=== PATIENT | male | born 1995 | race Caucasian/White ===

== ENCOUNTER 2016-10-03 12:40 | Emergency (ER) | payer OTHER ==
[~2016-10-03] VITALS: Ht 157.5 cm; Wt 103.6 kg
[~2016-10-03 12:40] MED LIST: CEPH250C PO; SULF1TAB23 PO; VIC PO; [UNRECOGNIZED DRUG - CODE]
[2016-10-03 12:46] VITALS: Ht 157.5 cm; Wt 103.6 kg
[2016-10-03] MEDS ORDERED: ONDANSETRON 4 MG INJ IV STA (13:40)
[2016-10-03] MEDS ORDERED: morphine 4 MG/ML VIAL IV STA (13:40)
[2016-10-03 14:20] LABS: ADD SCAN DIFF NO
[2016-10-03 14:24] LABS: ADD UMIC YES; URINE BILIRUBIN (Dip) NEGATIVE (NEGATIVE); URINE BLOOD (Dip) NEGATIVE (NEGATIVE); URINE COLOR LT. YELLOW (YELLOW); URINE GLUCOSE (Dip) NEGATIVE (NEGATIVE); URINE KETONES (Dip) NEGATIVE (NEGATIVE); URINE LEUKOCYTE ESTERASE (Dip) NEGATIVE (NEGATIVE); URINE NITRITE (Dip) NEGATIVE (NEGATIVE); URINE TOTAL PROTEIN (Dip) 1+ (NEGATIVE); URINE UROBILINOGEN (Dip) 0.2 E.U./dL (0.1-1.0)
[2016-10-03 14:26] LABS: BASOPHIL # 0.1 10^3/ul (0.0-0.1); BASOPHILS % 0.8 % (0.0-2.0); EOSINOPHILS # 0.1 10^3/ul (0.0-0.5); EOSINOPHILS % 1.5 % (0.0-7.0); HEMATOCRIT 46.6 % (42.0-52.0); HEMOGLOBIN 15.3 g/dl (14.0-18.0); LYMPHOCYTES # 3.2 10^3/ul (0.8-2.9); LYMPHOCYTES % 35.9 % (18.0-55.0); MEAN CORPUSCULAR HEMOGLOBIN 26.6 pg (29.0-33.0); MEAN CORPUSCULAR HGB CONC 32.8 g/dl (32.0-37.0); MEAN CORPUSCULAR VOLUME 80.9 fl (72.0-104.0); MEAN PLATELET VOLUME 11.7 fl (7.4-10.4); MONOCYTE # 0.7 10^3/ul (0.3-0.9); MONOCYTES % 8.1 % (0.0-13.0); NEUTROPHIL # 4.7 10^3/ul (1.6-7.5); NEUTROPHILS % 53.4 % (30.0-74.0); PLATELET COUNT 216 10^3/UL (140-415); RED BLOOD COUNT 5.76 10^6/ul (4.70-6.10); RED CELL DISTRIBUTION WIDTH 14.9 % (11.5-14.5); WHITE BLOOD COUNT 8.8 10^3/ul (4.8-10.8)
[2016-10-03 14:37] LABS: BACTERIA,URINE OCCASIONAL; URINE RBCS NONE SEEN /HPF (0)
--- NOTE | 2016-10-03 14:40 | RADRPT ---
PROCEDURE: Right hip series CLINICAL INDICATION: Pain. TECHNIQUE: 2 views. COMPARISON: None FINDINGS: Please note that detail is limited secondary to underexposure and resulting grainy images. No fractures are noted. No dislocations are visualized. The hip joint is well maintained. No erosions or irregularity are noted. No subchondral lucencies are visualized. The soft tissues are unremarkable. IMPRESSION: 1. Please note that detail is limited secondary to underexposure and resulting grainy images. 2. No gross bony abnormalities are noted. RPTAT: HH .Antonino Barron MD, MD Date Time Electronically viewed and signed by .Antonino Barron MD, on 10/03/2016 14:39 .G/
[2016-10-03 14:41] LABS: ALBUMIN 4.8 g/dl (3.3-4.9)
[2016-10-03 14:42] LABS: POTASSIUM 4.3 mmol/L (3.5-5.1)
[2016-10-03 14:44] LABS: ALBUMIN/GLOBULIN RATIO 1.45; BILIRUBIN,INDIRECT 0.5 mg/dl (0-1.1); BILIRUBIN,TOTAL 0.5 mg/dl (0.2-1.3); CREATININE 1.01 mg/dl (0.61-1.24); TOTAL PROTEIN 8.1 g/dl (6.1-8.1)
[2016-10-03 14:45] LABS: CALCIUM 10.1 mg/dl (8.4-10.2)
[2016-10-03 14:47] LABS: C-REACTIVE PROTEIN 0.8 mg/dl (0.0-0.9)
--- NOTE | 2016-10-03 14:56 | RADRPT ---
PROCEDURE: US Scrotum. CLINICAL INDICATION: Pain TECHNIQUE: Multiple sonographic images of the scrotal region were obtained utilizing a linear arra y transducer with grayscale and color-flow and a Doppler imaging. The images were reviewed on a high -resolution PACS workstation. COMPARISON: No prior studies are available for comparison. FINDINGS: The right testicle is well visualized and has a normal echotexture. No focal areas of abnormal echog enicity are visualized. The right testicle measures measures 3.4 x 2.1 x 2.2 cm. There is normal col or-flow. The right epididymis is visualized and unremarkable in appearance. There is normal color-fl ow. The left testicle is well visualized and has a normal echotexture. No focal areas abnormal echogenic ity are visualized. The left testicle measures measures 3.8 x 1.8 x 2.2 cm. There is normal color-fl ow. The left epididymis is visualized and is unremarkable in appearance. There is normal color-flow. The scrotal wall is unremarkable. No swelling or edema is seen. No other incidental abnormality is identified. RPTAT: AA IMPRESSION: 1. Unremarkable testicular ultrasound. .Konrad Reddy MD, MD Date Time Electronically viewed and signed by .Konrad Reddy MD, MD on 10/03/2016 14:56 .S/
--- NOTE | 2016-10-03 15:12 | RADRPT ---
PROCEDURE: CT abdomen and pelvis without contrast. CLINICAL INDICATION: Abdominal pain. TECHNIQUE: CT scan of the abdomen and pelvis without contrast was performed on a multi-slice CT [facility] . Sagittal and coronal reformatted images were obtained from the axial source images. DLP 988.5 mGycm. CTDIvol 16.9 mGy COMPARISON: None FINDINGS: The lung bases are clear. There is limited evaluation of the solid viscera from the lack of IV con trast. The kidneys are symmetric bilaterally with no evidence of renal or ureteral calculi. There is no hy dronephrosis or perinephric stranding. There is fatty infiltration of the liver with no gross focal lesion or biliary ductal dilatation. T he gallbladder is unremarkable without inflammation. The spleen is at the upper limits of normal in size with adjacent accessory splenules are present. The adrenal glands are within normal limits without mass. The pancreas is unremarkable without focal lesion or surrounding inflammatory changes. There is no bowel obstruction or focal bowel inflammation. The appendix is unremarkable. There is a mildly fecal filled colon. There is no free air or free fluid. There are no enlarged lymph nodes. The aorta is unremarkable and there is no acute osseous abnormality. The prostate is grossly unremarkable. IMPRESSION: No evidence of renal or ureteral calculi or hydronephrosis. No evidence of bowel obstruction or inflammation. There is a mildly fecal filled colon. There is n o appendicitis. Fatty liver. RPTAT: AA .Seven Willoughby MD, MD Date Time Electronically viewed and signed by .Seven Willoughby MD, MD on 10/03/2016 15:11 .J/
[2016-10-03] MEDS ORDERED: KETOROLAC 30 MG INJ IV STA (15:19)
[2016-10-03] MEDS ORDERED: IBUP-1542 PO (16:35)
[2016-10-03] MEDS ORDERED: HYDR-906 PO (16:35)
--- NOTE | 2016-10-03 16:45 | ERD ---
ER Documentation Chief Complaint Date/Time DATE: 10/03/16 TIME: 16:37 Chief Complaint RT LOWER ABD PAIN X 1 DAY HPI This is a 20-year-old presents to the ER with right lower quadrant abdominal pain that started yesterday. Patient has nausea and her mother had a fever at home have any vomiting. Pain is severe and makes patient limp. Patient does have a past medical history of IBS and has chronic diarrhea. Patient states that the pain is throbbing in quality is nonradiating. Patient did complain of right testicular pain yesterday, however testicular pain is better now but not completely resolved. Patient has not traveled anywhere. No hx of trauma to the hips, no falls. ROS 12 point review of systems was done, all negative except per HPI. Medications Home Meds Active Scripts Ibuprofen* (Motrin*) 600 Mg Tab, 600 MG PO Q6, #30 TAB Prov:MATI COVARRUBIAS 10/03/16 Hydrocodone/Acetaminophen ([place] 5-325 Tablet) 1 Each Tablet, 1 TAB PO Q6H Y for PAIN, #10 TAB Prov:MATI COVARRUBIAS 10/03/16 Reported Medications Acetaminophen/Hydrocodone (Vicodin) 1 Tab Tab, 1 TAB PO DAILY 10/31/12 Cephalexin* (Cephalexin*) 250 Mg Capsule, 250 MG PO Q6 10/31/12 Trimethoprim/Sulfamethoxazole* (Bactrim* SS) 1 Tab Tab, 1 TAB PO BID 10/31/12 Guar Gum (Fiber) 170 Gm Powder 10/23/12 Allergies Allergies: Coded Allergies: No Known Allergy (Unverified , 10/31/12) PMhx/Soc History of Surgery: Yes (ADENOIDECTOMY . ) Anesthesia Reaction: No Hx Neurological Disorder: No Hx Respiratory Disorders: No Hx Cardiac Disorders: No Hx Psychiatric Problems: No Hx Miscellaneous Medical Probl: Yes (IBS ) Hx Alcohol Use: No Hx Substance Use: No Hx Tobacco Use: No Physical Exam Vitals Vital Signs Date Time Temp Pulse Resp B/P Pulse Ox O2 Delivery O2 Flow Rate FiO2 10/03/16 12:46 98.7 89 18 131/60 98 Physical Exam GENERAL: The patient is well developed and appropriate for usual state of health , in no apparent distress. HEENT: Atraumatic. CHEST: Clear to auscultation bilaterally. There are no rales, wheezes or rhonchi. HEART: Regular rate and rhythm. No murmurs, clicks, rubs or gallops. ABDOMEN: Soft, and nondistended. Good bowel sounds. No rebound or guarding. No gross peritonitis. No gross organomegaly or masses. Tender to palpation in the right lower quadrant. BACK: No midline or flank tenderness. TESTICULAR: right testicle is ttp there is no erythema or swelling no hernias felt. EXTREMITIES: Equal pulses bilaterally. There is no peripheral clubbing, cyanosis or edema. No focal swelling or erythema. Full range of motion. Grossly neurovascularly intact. patient is limping secondary to pain. Patient is TTP at the right hip. patient has full ROM of hip but it is very painful. no erythema or swelling. NEURO: Alert and oriented. patient has odd speech and flat affect Result Diagram: 10/03/16 1410 10/03/16 1410 Results 24 hrs Laboratory Tests Test 10/03/16 14:10 Alanine Aminotransferase (ALT/SGPT) 57IU/L Albumin 4.8g/dl Albumin/Globulin Ratio 1.45 Alkaline Phosphatase 84IU/L Anion Gap 21 Aspartate Amino Transf (AST/SGOT) 34IU/L Basophils # 0.110^3/ul Basophils % 0.8% Blood Urea Nitrogen 16mg/dl C-Reactive Protein 0.8mg/dl Calcium Level 10.1mg/dl Carbon Dioxide Level 26mmol/L Chloride Level 105mmol/L Creatinine 1.01mg/dl Direct Bilirubin 0.00mg/dl Eosinophils # 0.110^3/ul Eosinophils % 1.5% Globulin 3.30g/dl Glucose Level 85mg/dl Hematocrit 46.6% Hemoglobin 15.3g/dl Indirect Bilirubin 0.5mg/dl Lipase 71U/L Lymphocytes # 3.210^3/ul Lymphocytes % 35.9% Mean Corpuscular Hemoglobin 26.6pg Mean Corpuscular Hemoglobin Concent 32.8g/dl Mean Corpuscular Volume 80.9fl Mean Platelet Volume 11.7fl Monocytes # 0.710^3/ul Monocytes % 8.1% Neutrophils # 4.710^3/ul Neutrophils % 53.4% Nucleated Red Blood Cells # 0.010^3/ul Nucleated Red Blood Cells % 0.0/100WBC Platelet Count 41094^3/UL Potassium Level 4.3mmol/L Red Blood Count 5.7610^6/ul Red Cell Distribution Width 14.9% Sodium Level 148mmol/L Total Bilirubin 0.5mg/dl Total Protein 8.1g/dl Urine Bacteria OCCASIONAL Urine Bilirubin NEGATIVE Urine Clarity CLEAR Urine Color LT. YELLOW Urine Epithelial Cells OCCASIONAL Urine Glucose NEGATIVE% Urine Hemoglobin NEGATIVE Urine Ketones NEGATIVE Urine Leukocyte Esterase NEGATIVE Urine Microscopic RBC NONE SEEN/HPF Urine Microscopic WBC NONE SEEN/HPF Urine Nitrite NEGATIVE Urine Specific [place] >=1.030 Urine Total Protein 1+ Urine Urobilinogen 0.2 E.U./dL Urine pH 5.5 White Blood Count 8.810^3/ul Current Medications Medications (Trade) Dose Ordered Sig/Mary Grace Route PRN Reason Start Time Stop Time Status Last Admin Dose Admin Morphine Sulfate (morphine) 6 mg ONCE STAT IV 10/03/16 13:40 10/03/16 13:43 DC 10/03/16 13:58 Ondansetron HCl (Zofran Inj) 4 mg ONCE STAT IV 10/03/16 13:40 10/03/16 13:43 DC 10/03/16 13:58 Ketorolac Tromethamine (Toradol) 30 mg ONCE STAT IV 10/03/16 15:19 10/03/16 15:20 DC 10/03/16 15:25 Procedures/MDM Differential diagnosis includes but is not limited to viral illness, appendicitis, constipation, intra-abdominal abscess, septic joint, hip fracture or dislocation, testicular torsion, hernia. This is a 20-year-old male who presents to the ER with right lower quadrant abdominal pain. Patient was also tender to palpation along the right hip on physical examination and therefore x- rays were taken however there was no evidence of fractures or dislocations. Patient does not have any trauma and suspicion for fracture is low. She had full range of motion of his hip suspicion for septic joint is low. Patient was tender to palpation to the right testicle however there is no evidence of testicular torsion. There is no evidence of acute abdomen. Patient's pain was controlled here in the ER with morphine and Toradol. Patient was reexamined by myself by Dr. Oshea. Patient appeared much better. Patient will be sent home with ibuprofen. Needs to follow-up with his primary care doctor within 1-2 days or return to ER sooner if symptoms worsen. Plan was discussed with the patient he understands and agrees with plan. Departure Diagnosis: Primary Impression: Abdominal pain Condition: Stable Patient Instructions: Abdominal Pain Referrals: [facility] (PCP) Additional Instructions: Call your primary care doctor TOMORROW for an appointment during the next 1-2 days.See the doctor sooner or return here if your condition worsens before your appointment time. MATI COVARRUBIAS Oct 03, 2016 16:45
[2016-10-03 17:00] VITALS: BP 121/67; PULSE 74; RESP 18; TEMP 98.3
== END 2016-10-03 17:00 | disposition home or self-care (01) ==
LOC: FTE 12:40
DX: R10.31 Right lower quadrant pain (principal); R11.2 Nausea with vomiting, unspecified
CPT/HCPCS: 36415; 73510; 74176; 76870; 80053; 81001; 83690; 85025; 85651; 86140; 96374; 96375; J1885; J2270; J2405; Z7502; 81003